=== PATIENT | female | born 1940 | race Caucasian/White ===

== ENCOUNTER 2018-05-21 12:54 | Emergency (ER) | payer MEDICARE, OTHER ==
[2018-05-21] MEDS ORDERED: Acetaminophen TAB* 325 MG PO ONE (13:18)
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
[2018-05-21 14:29] VITALS: BP 182/78
== END 2018-05-21 14:28 | disposition home or self-care (01) ==
LOC: ED 12:54
DX: S20.212A Contusion of left front wall of thorax, initial encounter (principal); V47.5XXA Car driver injured in collision with fixed or stationary object in traffic accident, initial encounter; Y92.410 Unspecified street and highway as the place of occurrence of the external cause; M81.0 Age-related osteoporosis without current pathological fracture; Z87.891 Personal history of nicotine dependence
CPT/HCPCS: 71046; 71120; 99282; A9270-GY